=== PATIENT | female | born 2000 | race Caucasian/White ===

== ENCOUNTER 2023-07-27 18:49 | Emergency (ER) | payer OTHER, SELFPAY ==
[2023-07-27] VITALS (7 sets, daily range): BP systolic 118–129; BP diastolic 76–90; PULSE 94–140; RESP 20–24; TEMP 36.7; O2SAT 97–99; BMI 21.8
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
--- NOTE | 2023-07-27 19:11 | CRLHL7_ITS ---
For Patients: As a result of the Century Cures Act, medical imaging exams and procedure reports are released immediately into your electronic medical record. You may view this report before your referring provider. If you have questions, please contact your health care provider. INDICATION: Rapid heart rate TECHNIQUE: Chest 1 view. Permanently recorded images are archived. COMPARISON: None. FINDINGS: Cardiovascular and mediastinum: Heart size and vasculature are normal in caliber and appearance. Lungs and pleural spaces: The lungs are clear. No pleural effusion or pneumothorax. Bones and soft tissues: Unremarkable for age. IMPRESSION: No evidence of an acute pulmonary process. Dictated by Zbigniew Cutler MD @ 07/27/2023 8:27:37 PM (Electronically Signed)
[2023-07-27] MEDS: 0.9 % SODIUM CHLORIDE 1000 ml 1,000 ML IV (19:15)
[2023-07-27] MEDS: METOPROLOL TARTRATE 1 MG/ML inj 5 MG IVP (19:15)
[2023-07-27] MEDS: LORazepam 2 MG/ML inj 0.5 MG IVP (19:18)
[2023-07-27 19:19] LABS: Basophils Percent Auto 0.7 % (0.0-3.0); Eosinophils Percent Auto 0.8 % (0.0-7.0); Hemoglobin* 14.9 gm/dL (12.0-16.0); Immature Granulocytes Pct Auto 0.1 %; Lymphocytes Percent Auto 21.9 % (20-44); Mean Corpuscular HGB Conc 34 gm/dL (32-36); Mean Corpuscular Hemoglobin 29 pg (26-34); Mean Corpuscular Volume 86 fL (80-100); Monocytes Percent Auto 6.4 % (0.0-11.0); Neutrophils Percent Auto 70.1 % (42.0-72.0); Platelet Count* 498 K/uL (140-440); RDW Coefficient of Variation % 12.7 % (11.5-15.5); White Blood Count* 11.51 K/uL (4.50-11.00)
[2023-07-27 19:25] LABS: Slide Review Reflex No
[2023-07-27 19:35] LABS: Albumin* 5.5 g/dL (3.3-5.0); Chloride* 105 mmol/L (96-114); Sodium* 136 mmol/L (135-149)
[2023-07-27 19:36] LABS: Potassium* 3.7 mmol/L (3.6-5.1)
[2023-07-27 19:38] LABS: Alkaline Phosphatase* 41 U/L (40-150); Anion Gap 13 mEq/L (7-15); Aspartate Amino Transferase* 21 U/L (12-35); Carbon Dioxide* 18 mmol/L (20-32); Creatinine* 0.8 mg/dL (0.5-1.5); Est. Creatinine Clearance* 102.39; Estimated Glomerular Filt Rate 106 ml/min
[2023-07-27 19:39] LABS: Alanine Aminotransferase* 16 U/L (4-35); Blood Urea Nitrogen* 12 mg/dL (5-24); Calcium* 9.9 mg/dL (8.4-10.6); Glucose* 101 mg/dL (60-115); Magnesium* 1.9 mg/dL (1.5-2.6)
[2023-07-27 19:42] LABS: C Reactive Protein* < 0.5 mg/dL (0.5-1.0)
[2023-07-27] MEDS: PROPRANOLOL 20 MG TABLET PO (20:33)
== END 2023-07-27 21:11 | disposition home or self-care (01) ==
PROVIDERS: Emergency Provider Family Medicine
DX: I47.10 Supraventricular tachycardia, unspecified (principal)
CPT/HCPCS: 36415; 71045; 80053; 83735; 84443; 84484; 85025; 86140; 93005; 94761; 96374; 99285; A9270; J2060; J7030